=== PATIENT | male | born 1985 | race Caucasian/White ===

== ENCOUNTER 2017-07-15 12:45 | Emergency (ER) | payer OTHER ==
[~2017-07-15] VITALS: Ht 190.5 cm; Wt 108.9 kg
[~2017-07-15 12:45] MED LIST: ACET325 PO; AMOX500 PO; CITA20 PO; CYCL10 PO; Cleocin HCl150 MG PO; Cleocin HCl300 MG PO; HYDACE5 PO; IBUP600 PO; IBUP800 PO; KETO10 PO; LEVE500; META800 PO; MIRT15 PO; Naprosyn500 MG PO; OXYACE5T PO; PROM25 PO; RXMETA800 PO; TRAM50 PO; Tylenol325 MG PO; Ultram50 MG PO; Veetids 500500 MG PO
[2017-07-15] MEDS ORDERED: Lasix20 MG PO (13:39)
[2017-07-15] MEDS ORDERED: RELIEF KNEE CL1 EACH TOP (13:40)
== END 2017-07-15 13:46 | disposition home or self-care (01) ==
LOC: ER 12:45
DX: R60.0 Localized edema (principal); F17.200 Nicotine dependence, unspecified, uncomplicated; Z91.041 Radiographic dye allergy status; Z88.8 Allergy status to other drugs, medicaments and biological substances; Z79.899 Other long term (current) drug therapy
CPT/HCPCS: 99283

== ENCOUNTER → 2017-12-08 | Outpatient (CLI) | payer OTHER ==
[~2017-12-08] MED LIST changes: +Lasix20 MG PO; +ONDA4ODT MM; +RELIEF KNEE CL1 EACH TOP
[2017-12-08 09:58] LABS: BASOPHILS ABSOLUTE AUTO 0.01 K/mm3 (0.00-0.23); BASOPHILS PERCENT AUTO 0 % (0-2); EOSINOPHILS PERCENT AUTO 1 % (0-6); Hematocrit 39.2 % (37.0-53.0); Hemoglobin 13.9 g/dL (13.5-17.5); IMMATURE GRAN ABSOLUTE AUTO 0.02 K/mm3 (0.00-0.10); IMMATURE GRAN PERCENT AUTO 0 % (0-1); LYMPHOCYTES ABSOLUTE AUTO 1.77 K/mm3 (0.84-5.20); LYMPHOCYTES PERCENT AUTO 26 % (21-46); MONOCYTES ABSOLUTE AUTO 0.76 K/mm3 (0.16-1.47); MONOCYTES PERCENT AUTO 11 % (4-13); Mean Corpuscular HGB 29.6 pg (26.0-34.0); Mean Corpuscular HGB Conc 35.5 g/dL (31.5-36.5); Mean Corpuscular Volume 84 fL (80-100); Mean Platelet Volume 9.2 fL (9.1-12.4); NEUTROPHILS ABSOLUTE AUTO 4.25 K/mm3 (1.96-9.15); NEUTROPHILS PERCENT AUTO 62 % (41-73); Platelet Count 301 K/mm3 (150-400); RDW Coefficient Variation 12.6 % (11.7-14.2); RDW Standard Deviation 37.9 fL (35.1-46.3); Red Blood Cell Count 4.69 M/mm3 (4.30-5.90); White Blood Cell Count 6.91 K/mm3 (4.00-11.30)
[2017-12-08 10:15] LABS: Alanine Aminotransfer (ALT/SGP 45 U/L (12-78); Albumin, Blood 3.6 g/dL (3.4-5.0); Alk Phos 73 U/L (40-126); Anion Gap 4 mmol/L (6-16); Aspartate Aminotrans (AST/SGOT 23 U/L (12-37); Bilirubin, Total 0.4 mg/dL (0.1-1.0); Blood Urea Nitrogen 9 mg/dL (8-24); Bun/Creatinine Ratio 11.8 (12.0-20.0); CO2, Blood 31 mmol/L (21-32); Calcium, Blood 8.9 mg/dL (8.5-10.1); Chloride, Blood 102 mmol/L (98-108); Creatinine, Blood 0.76 mg/dL (0.60-1.20); Globulin, Blood 3.5 g/dL (2.2-4.0); Glomerular Filtration Rate >60 (60-); Glucose, Blood 113 mg/dL (70-99); Potassium, Blood 3.5 mmol/L (3.5-5.5); Sodium, Blood 137 mmol/L (136-145); Total Protein, Blood 7.1 g/dL (6.4-8.2)
[2017-12-11 23:08] LABS: CHLAMYDIA TRACHOMATIS, NAA Negative (Negative); NEISSERIA GONORRHOEAE, NAA Negative (Negative)
== END ==
LOC: LAB EV 09:55 → LAB SHORT 09:55
PROVIDERS: Physician Assistant
DX: R10.13 Epigastric pain (principal)
CPT/HCPCS: 80053; 83690; 85025

== ENCOUNTER 2017-12-09 08:53 | Emergency (ER) | payer OTHER ==
[~2017-12-09] VITALS: Ht 190.5 cm; Wt 97.5 kg
[~2017-12-09 08:53] MED LIST changes: -ONDA4ODT MM
[2017-12-09 09:44] LABS: Anion Gap 7 mmol/L (6-16); Blood Urea Nitrogen 9 mg/dL (8-24); CO2, Blood 27 mmol/L (21-32); Chloride, Blood 108 mmol/L (98-108); Creatinine, Blood 0.69 mg/dL (0.60-1.20); Glomerular Filtration Rate >60 (60-); Glucose, Blood 99 mg/dL (70-99); Potassium, Blood 3.6 mmol/L (3.5-5.5); Sodium, Blood 142 mmol/L (136-145)
[2017-12-09] MEDS ORDERED: ONDA4ODT MM (10:32)
== END 2017-12-09 10:45 | disposition home or self-care (01) ==
LOC: ER 08:53
PROVIDERS: Emergency Medicine
DX: R11.2 Nausea with vomiting, unspecified (principal); R10.9 Unspecified abdominal pain; F17.200 Nicotine dependence, unspecified, uncomplicated; Z91.041 Radiographic dye allergy status; Z88.8 Allergy status to other drugs, medicaments and biological substances; Z87.442 Personal history of urinary calculi; Z79.899 Other long term (current) drug therapy
CPT/HCPCS: 80048; 96374; 96375; 99284-25; J1630; J1885; J2405; J7120

== ENCOUNTER → 2018-01-08 | Outpatient (CLI) | payer OTHER ==
[~2018-01-08] MED LIST changes: +ONDA4ODT MM
== END | disposition home or self-care (01) ==
LOC: LAB SRC 08:00 → LAB SHORT 08:00
DX: F11.20 Opioid dependence, uncomplicated (principal)

== ENCOUNTER 2018-02-10 19:55 | Emergency (ER) | payer OTHER ==
[~2018-02-10] VITALS: Ht 190.5 cm; Wt 81.7 kg
== END 2018-02-10 21:33 | disposition home or self-care (01) ==
LOC: ER 19:55
DX: S01.01XA Laceration without foreign body of scalp, initial encounter (principal); W22.8XXA Striking against or struck by other objects, initial encounter; Z91.041 Radiographic dye allergy status; Z88.8 Allergy status to other drugs, medicaments and biological substances; Z79.899 Other long term (current) drug therapy; F17.210 Nicotine dependence, cigarettes, uncomplicated
CPT/HCPCS: 12001; 99283

== ENCOUNTER 2018-09-24 13:50 | Observation (INO) | payer OTHER ==
[~2018-09-24] VITALS: Ht 188 cm; Wt 64.8 kg
[2018-09-24 14:40] LABS: BASOPHILS ABSOLUTE AUTO 0.02 K/mm3 (0.00-0.23); BASOPHILS PERCENT AUTO 0 % (0-2); EOSINOPHILS ABSOLUTE AUTO 0.03 K/mm3 (0.00-0.68); EOSINOPHILS PERCENT AUTO 0 % (0-6); Hematocrit 43.4 % (37.0-53.0); Hemoglobin 15.2 g/dL (13.5-17.5); IMMATURE GRAN ABSOLUTE AUTO 0.03 K/mm3 (0.00-0.10); IMMATURE GRAN PERCENT AUTO 0 % (0-1); LYMPHOCYTES ABSOLUTE AUTO 1.88 K/mm3 (0.84-5.20); LYMPHOCYTES PERCENT AUTO 20 % (21-46); MONOCYTES ABSOLUTE AUTO 0.43 K/mm3 (0.16-1.47); MONOCYTES PERCENT AUTO 5 % (4-13); Mean Corpuscular HGB 29.5 pg (26.0-34.0); Mean Corpuscular Volume 84 fL (80-100); Mean Platelet Volume 9.3 fL (9.1-12.4); NEUTROPHILS ABSOLUTE AUTO 7.01 K/mm3 (1.96-9.15); NEUTROPHILS PERCENT AUTO 75 % (41-73); Platelet Count 263 K/mm3 (150-400); RDW Coefficient Variation 11.9 % (11.7-14.2); RDW Standard Deviation 36.2 fL (35.1-46.3); Red Blood Cell Count 5.16 M/mm3 (4.30-5.90)
[2018-09-24 15:09] LABS: Alanine Aminotransfer (ALT/SGP 26 U/L (12-78); Albumin, Blood 4.3 g/dL (3.4-5.0); Alk Phos 73 U/L (50-136); Anion Gap 7 mmol/L (6-16); Aspartate Aminotrans (AST/SGOT 17 U/L (12-37); Bilirubin, Total 0.8 mg/dL (0.1-1.0); Blood Urea Nitrogen 11 mg/dL (8-24); Bun/Creatinine Ratio 17.1 (12.0-20.0); CO2, Blood 26 mmol/L (21-32); Calcium, Blood 9.7 mg/dL (8.5-10.1); Chloride, Blood 103 mmol/L (98-108); Creatinine, Blood 0.64 mg/dL (0.60-1.20); Globulin, Blood 4.1 g/dL (2.2-4.0); Glomerular Filtration Rate >60 (60-); Glucose, Blood 112 mg/dL (70-99); Potassium, Blood 3.8 mmol/L (3.5-5.5); Sodium, Blood 136 mmol/L (136-145); Total Protein, Blood 8.4 g/dL (6.4-8.2)
[2018-09-24] MEDS ORDERED: METH10 PO (15:27)
[2018-09-24 17:34] LABS: Source, Urine Clean Catch
[2018-09-24 17:47] LABS: Appearance, Urine Clear (Clear); Bilirubin, Urine Neg (Neg); Blood, Urine Neg (Neg); Color, Urine Yellow (P-Yellow); Glucose Qualitative, Urine Neg (Neg); Ketones, Urine 1+ (Neg); Leukocyte Esterase, Urine 1+ (Neg); Nitrite, Urine Neg (Neg); Protein, Urine Neg (Neg); Urobilinogen, Urine NORM (Normal)
[2018-09-24 18:37] LABS: Mucus Light (0-Heavy); Red Blood Cells, Urine Rare /hpf (0-2); Squamous Epithelial Cells Rare /hpf (Few); White Blood Cells, Urine Rare /hpf (0-5)
[2018-09-24 18:38] LABS: Bacteria Not Seen /hpf
--- NOTE | 2018-09-25 05:15 | NUR ---
PT NEW ADMIT THIS SHIFT FOR ACUTE FRANCI. PT VSS SINCE ARRIVING TO FLOOR. PT STRUGGLING W/NAUSEA, W/EMESIS X1. PAIN AND NAUSEA MGD PER EMAR. PT NPO SINCE ARRIVING TO FLOOR, IVF CONT PER ORDERS. PLAN FOR OR TODAY. PT INDEP IN ROOM, IS USING CALL LIGHT FOR ASSISTANCE, WILL CONT TO MONITOR UNTIL REP GIVEN TO ONCOMING RN.
--- NOTE | 2018-09-25 11:49 | NUR ---
1145 to day surgery
--- NOTE | 2018-09-25 11:58 | NUR ---
History, Chart, Medications and Allergies reviewed before start of procedure. Lungs clear T/O to Auscultation. Patient confirms NPO status and agrees with scheduled surgery.
--- NOTE | 2018-09-25 14:56 | NUR ---
3996 return to room RETURNED TO ROOM POST OP. PATIENT STOOD TO TRANSFER TO BED, VOIDED CLEAR DARIA URINE. STERI STRIPS IN PLACE TO ABD X4 SITES. PATIENT DENIES NAUSEA, JELLO AND JUICE GIVEN PER REQUEST
--- NOTE | 2018-09-25 16:33 | NUR ---
OFF UNIT PATIENT REQUESTS IV BE DISCONNECTED SO HE CAN GO OUTSIDE. DISCUSSED WITH PATIENT THAT HE SHOOULD NOT SMOKE ANY CIGARETTES AND THAT ACTIVITY MAY INCREASE HIS PAIN. PATIENT STILL WISHES TO GO OUTSIDE. WHEELCHAIR PROVIDED AND PATIENTS GIRLFRIEND TAKING PATIENT OUTSIDE
--- NOTE | 2018-09-25 17:26 | NUR ---
1700 PAIN PATIENT RETURNED TO ROOM, REPORTS PAIN 9-10. MEDICATED WITH FENTANYL. 2X2 INCH AREA OF BLOODY DRAINAGE AT UMBILICUS SITE. 2X2 GAUZE AND BAND AID APPLIED
--- NOTE | 2018-09-25 18:24 | NUR ---
SUMMARY TAI PO FLUID WITHOUT NAUSEA, PATIENT DOES NOT WANT SOLID FOOD AT THIS TIME. ABD PAIN CONTROLLED TO LEVEL ACCEPTABLE TO PATIENT. PATIENTS GIRLFRIEND AT BED THROUGHOUT SHIFT. STERI STRIPS INTACT TO ABD WITH SMALL AMOUNT BLOODY DRAIANGE LESS THAN .5 INCHES IN DIAMETER
--- NOTE | 2018-09-26 04:34 | NUR ---
SUMMARY: PT IS POD1 LAP FRANCI. NO ACUTE CONCERNS THIS AM. VSS, PAIN MANAGED WITH 2 NARCO AND FENTANYAL FOR BREAK THROUGH PAIN. SURGICAL SITES WNL. PT TOLERATING CLEAR LIQUIDS, DENIES N/V. IS VOIDING AND AMBULATING. INDEPENDENT IN ROOM. WILL CTM AND REPORT TO DAY RN.
[2018-09-26] MEDS ORDERED: Percocet 10-321 EACH PO (11:50)
--- NOTE | 2018-09-26 12:47 | NUR ---
discharge: pt dc to home. verbalized understanding of instructions, follow up, problems to report and medications. script given. pt left ambulatory to car with belongings. iv dc'd wnl.
== END 2018-09-26 12:40 | disposition home or self-care (01) ==
LOC: ER 13:50 → SURS 13:51
PROVIDERS: Emergency Medicine; Physician Assistant; Surgery; ADMIT Surgery
PROC: 0FT44ZZ Resection of Gallbladder, Percutaneous Endoscopic Approach (ICD-10-PCS; principal; 2018-09-25 12:15)
DX: K80.10 Calculus of gallbladder with chronic cholecystitis without obstruction (principal); F17.210 Nicotine dependence, cigarettes, uncomplicated; Z79.899 Other long term (current) drug therapy; Z88.8 Allergy status to other drugs, medicaments and biological substances; Z91.041 Radiographic dye allergy status
CPT/HCPCS: 36415; 76705; 80053; 81001; 83690; 85025; 87086; 88304; 96361; 96374; 96375; 96376; 99285-25; A9270-GY; C1729; G0378; J0690; J1100; J1200; J1885; J2250; J2405; J2550; J2704; J2710; J3010; J7030; J7120